=== PATIENT | male | born 1995 | race Two or more races ===

== ENCOUNTER 2018-06-17 10:42 | Emergency (ER) | payer SELFPAY ==
[~2018-06-17] VITALS: Ht 177.8 cm; Wt 65.8 kg
[2018-06-17 10:45] VITALS: BP 101/72
== END 2018-06-17 12:21 | disposition home or self-care (01) ==
LOC: ER 10:48
DX: S29.011A Strain of muscle and tendon of front wall of thorax, initial encounter (principal); M62.830 Muscle spasm of back; R07.81 Pleurodynia; Z88.6 Allergy status to analgesic agent; V49.49XA Driver injured in collision with other motor vehicles in traffic accident, initial encounter; Y93.89 Activity, other specified; Y92.413 State road as the place of occurrence of the external cause; Y99.8 Other external cause status
CPT/HCPCS: 71100; 99284; A4606; Z7610